=== PATIENT | male | born 1950 | race Caucasian/White ===

== ENCOUNTER 2019-06-16 11:15 | Outpatient (REF) | payer MEDICARE, OTHER, SELFPAY | END 2019-06-16 11:35 | LOC: LBN 11:15 | PROVIDERS: PCP Family Medicine; Visit Provider Family Medicine | DX: L02.31 Cutaneous abscess of buttock (principal) | CPT/HCPCS: 87070; 87205 ==

== ENCOUNTER 2019-06-23 15:40 | Outpatient (CLI) | payer MEDICARE, OTHER, SELFPAY ==
--- NOTE | 2019-06-23 12:15 | DI.RAD_ITS ---
EXAM: XR CHEST 2V PA LATERAL INDICATION: Fever and wheezing on exam, acute bronchitis, J20.9, r/o pneumonia. COMPARISON: CHEST WITH CONTRAST from 04/01/2015 CHEST 2 VIEWS PA,LAT from 07/03/2017 TECHNIQUE: 2D digital imaging was performed. FINDINGS: The cardiac and mediastinal contours have a normal appearance. Areas of scarring are in the right mi ddle lobe and lingula. No focal area of consolidation or effusion is seen. No peribronchial thicken ing is visible. IMPRESSION: Mild scarring. No acute abnormality. DATA REPOSITORY: RADIATION DOSE DELIVERED:
== END 2019-06-23 16:00 ==
PROVIDERS: PCP Family Medicine; Visit Provider Family Medicine
DX: R06.2 Wheezing (principal); R50.9 Fever, unspecified; J20.9 Acute bronchitis, unspecified; J98.4 Other disorders of lung
CPT/HCPCS: 71046

== ENCOUNTER 2020-03-29 07:00 | Day surgery (SDC) | payer MEDICARE, OTHER, SELFPAY ==
[2020-03-29 07:06] VITALS: BP 141/91; PULSE 89; RESP 17; TEMP 36.3; O2SAT 99
[2020-03-29] MEDS: Tropicam./Phenyleph. (1/2.5%) 5 ML BTL OS ×3 (07:20→07:33)
[2020-03-29] MEDS: Lidocaine 2% Jelly 6 ML SYR (08:27)
[2020-03-29] MEDS: Povidone-Iodine Ophth 30 ML BTL (08:27)
[2020-03-29] MEDS: Tetracaine 0.5% 4 ML BTL OS (08:34)
[2020-03-29] MEDS: Balanced Salt Soln.-PLUS 500 ML BAG (08:35)
[2020-03-29] MEDS: Trypan Blue 0.06% 0.5 ML SYR (08:36)
[2020-03-29] MEDS: Duovisc Viscoelastic System EACH 1 EACH (08:37)
[2020-03-29] MEDS: Lidocaine 1% Pres-Free 5 ML VIAL (08:38)
[2020-03-29] MEDS: Moxifloxacin-PF 1 MG/ML VIAL (08:40)
--- NOTE | 2020-03-29 09:09 | W.PM.DSUDISC ---
Discharge Plan Disposition Patient Disposition: HOME Condition: Good Discharge Details Attending Provider: Wong Elder Primary Care Provider: Bin Loja Home Meds and New Rx's Prescriptions: No Action albuterol sulfate [Ventolin HFA] 90 mcg/actuation HFA aerosol inhaler 1 puff IH Q6H PRN (Reason: shortness of breath or wheezing) Qty: 18 RF: 3 aspirin 81 MG tablet,delayed release (DR/EC) 81 mg PO DAILY Qty: 100 RF: 6 amlodipine-benazepril 10-20 mg capsule 1 cap PO DAILY Qty: 90 RF: 3 metoprolol succinate 50 mg tablet extended release 24 hr 50 mg PO DAILY Qty: 90 RF: 3 Discharge Instructions Stand Alone Forms: Post-op Topical Cataract, Alexis Garcia (DSU) Discharge Orders Discharge Orders: Discharge Order (Routine); Ordered 03/29/20 Ordered By: Wong Elder DS: Diagnosis Discharge Diagnosis (1) Exotropia, right eye: Status: Chronic (2) Posterior subcapsular age-related cataract, right eye: Status: Resolved (3) Nuclear sclerotic cataract of right eye: Status: Resolved (4) Cortical cataract of right eye: Status: Resolved
--- NOTE | 2020-03-29 09:09 | W.PM.OP ---
Date of service: 03/29/20 Time of Service: 09:10 Operative Note Operative Note DATE OF PROCEDURE: 03/29/20 PRE-OP DIAGNOSIS: Dense nuclear/cortical/posterior subcapsular cataract, right eye; Poor red reflex, right eye secondary to dense cataract Exotropia, right eye POST-OP DIAGNOSIS: same PROCEDURE: Cataract extraction using phacoemulsification with intraocular lens implantation, right eye, using capsular staining with Vision Blue SURGEON: Wong Elder ANESTHESIA: MAC (with local sub-tenon's anesthetic injection) PATHOLOGY: none sent COMPLICATIONS: None Patient was transported to: same day Patient's condition: stable Implants: Crispin [employer] Cris[employer] / [employer] Tecnis [id number] Indications: Progressive visual loss due to cataract, right eye Procedure Description: CATARACT SURGERY OPERATIVE REPORT PREOPERATIVE DIAGNOSIS: 1. Dense nuclear/cortical/posterior subcapsular cataract, right eye 2. Poor red reflex secondary to #1 3. Exotropia, right eye POSTOPERATIVE DIAGNOSIS: Same OPERATION: 1. Cataract extraction using phacoemulsification with posterior chamber intraocular lens implant, right eye. 2. Capsular staining with Vision Blue IOL: IOL Melting Furnace Skimmer/Model: Crispin & Crispin / LOGAN Tecnis [id number] IOL Power: + 22.50 diopters IOL Serial Number: [id number] Optic Diameter: 6.0mm Haptic/Overall Diameter: 13.0mm PHACO INFO: Chidi [employer] Vision System with OZil and Active Fluidics Cumulative Dispersed Energy (CDE): 25.65 seconds SURGEON: Wong Elder MD, DARRIUS ANESTHESIA: Monitored Anesthesia Care (MAC), with local sub-tenon's anesthetic infiltration COMPLICATIONS: None SPECIMENS: None INDICATIONS FOR PROCEDURE: The patient is a 70-year-old gentleman with history of diminished visual acuity in both eyes. He is noted to have dense bilateral nuclear/cortical/posterior subcapsular cataract. He has a history of right exotropia with very poor central visual acuity. The option of cataract surgery was offered to the patient and he wished to proceed. PROCEDURE: The correct surgical eye was identified and marked as the right eye and the pupil was dilated in the preoperative area using mydriatics and cycloplegics. The dilated pupil size was 5.5 mm. Oral sedation was administered in the form of an Imprimis MKO Melt (midazolam 3mg/ketamine 25mg/ondansetron 2mg). The patient was brought to the operating room where cardiopulmonary monitoring was instituted and surgical time-out was performed, confirming the correct operative eye and IOL power. Topical anesthesia was administered and ophthalmic povidone-iodine 5% was instilled into the conjunctival fornices. Lidocaine gel was applied to the cornea and the jigna-ocular area was prepped with Betadine 10% solution and draped in the usual sterile fashion for intraocular surgery, including an aperture drape. A Tegaderm transparent film dressing was cut in half and used to cover the lashes and lid margins. Care was taken to sequester the lashes and lid margins under the Tegaderm dressing. A lid speculum was placed between the lids of the operative eye and the Janet-Salty operating microscope was maneuvered into position. Betty scissors were then used to make a conjunctival buttonhole approximately 6mm posterior to the limbus in the inferonasal quadrant. Blunt dissection was carried out to expose bare sclera, and a blunt-tipped sub-tenon?s anesthesia cannula was introduced and passed posteriorly along the globe where non-preserved plain lidocaine was injected into posterior sub-Tenon?s space. A sideport knife was used to make a paracentesis port inferotemporally. Intraocular phenylephrine/lidocaine was injected into the anterior chamber. Air was injected into the anterior chamber, followed by Vision Blue, which was painted over the anterior capsule and then irrigated out with BSS. The anterior chamber was filled with Viscoat. A 2.4mm keratome knife was used to create a half-thickness groove at the limbus and then to construct a three-plane near-clear corneal tunnel extending 2.0mm into clear cornea superiortemporally. A flap was raised on the anterior capsule and capsulorhexis forceps were used to complete a continuous curvilinear capsulorhexis of 4.8 mm. Balanced salt solution was then used to perform cortical cleaving hydrodissection and nuclear hydrodelineation until the lens could be freely rotated within the capsular bag. The lens nucleus was then disassembled and removed within the capsular bag and iris plane using phacoemulsification. Residual cortical material was removed using the I/A handpiece. The posterior capsule was carefully polished to remove as much residual lens epithelial cells as safely possible. The capsular bag was then inflated and the anterior chamber deepened with viscoelastic. The lens implant described above was inserted into the capsular bag using the LOGAN [place] Injector. A Kuglen hook was used to dial the IOL into position. Residual viscoelastic was then removed first from posterior to the IOL, then from the anterior chamber using the I/A handpiece. The lens implant was noted to center nicely within the capsular bag. The incisions were stromally hydrated, and the anterior chamber was reformed using BSS. Then 0.5cc of moxifloxacin 1.0mg/ml were injected into the capsular bag and anterior chamber. The incisions were checked with a Weck spear and found to be secure. Several drops of ophthalmic povidone-iodine 5% were then applied to the eye followed by two drops of Imprimis combination prednisolone/moxifloxacin/nepafenac solution. The drapes were removed and a clear plastic protective eye shield was placed over the eye. The patient was then returned to Same Day Surgery in stable condition.
[2020-03-29 09:25] VITALS: BP 108/62; PULSE 82; RESP 19; TEMP 36.8; O2SAT 98
== END 2020-03-29 09:35 | disposition home or self-care (01) ==
PROVIDERS: PCP Family Medicine; Visit Provider Ophthalmology
PROC: (CPT 66982; principal; 2020-03-29 08:15)
DX: H25.11 Age-related nuclear cataract, right eye (principal); H25.041 Posterior subcapsular polar age-related cataract, right eye; H25.011 Cortical age-related cataract, right eye; H50.10 Unspecified exotropia; H57.09 Other anomalies of pupillary function
CPT/HCPCS: 66982; V2632

== ENCOUNTER 2020-04-12 09:38 | Day surgery (SDC) | payer MEDICARE, OTHER, SELFPAY ==
[2020-04-12] MEDS: Tropicam./Phenyleph. (1/2.5%) 5 ML BTL OS ×3 (10:02→10:14)
[2020-04-12 10:03] VITALS: BP 154/77; PULSE 79; RESP 18; TEMP 36.5; O2SAT 97
[2020-04-12] MEDS: Tetracaine 0.5% 4 ML BTL OS (11:02)
[2020-04-12] MEDS: Lidocaine 2% Jelly 6 ML SYR (11:03)
[2020-04-12] MEDS: Povidone-Iodine Ophth 30 ML BTL (11:03)
[2020-04-12] MEDS: Lidocaine 1% Pres-Free 5 ML VIAL (11:09)
[2020-04-12] MEDS: Balanced Salt Soln.-PLUS 500 ML BAG (11:11)
[2020-04-12] MEDS: Trypan Blue 0.06% 0.5 ML SYR (11:12)
--- NOTE | 2020-04-12 11:42 | PDOC.DSDIS_ITS ---
Discharge Plan Disposition Condition: Good Discharge Details Attending Provider: Wong Elder Primary Care Provider: Bin Loja Home Meds and New Rx's Prescriptions: No Action albuterol sulfate [Ventolin HFA] 90 mcg/actuation HFA aerosol inhaler 1 puff IH Q6H PRN (Reason: shortness of breath or wheezing) Qty: 18 RF: 3 aspirin 81 MG tablet,delayed release (DR/EC) 81 mg PO DAILY Qty: 100 RF: 6 amlodipine-benazepril 10-20 mg capsule 1 cap PO DAILY Qty: 90 RF: 3 metoprolol succinate 50 mg tablet extended release 24 hr 50 mg PO DAILY Qty: 90 RF: 3 Move Free Align Technology 750 mg-100 mg- 1.65 mg-108 mg Tablet PO RF: 0 Discharge Instructions Stand Alone Forms: Post-op Block Cataract, Post-op Topical Cataract, Press Ganey (DSU) DS: Diagnosis Discharge Diagnosis (1) Cortical cataract of left eye: Status: Resolved (2) Nuclear sclerotic cataract of left eye: Status: Resolved (3) Posterior subcapsular age-related cataract of left eye: Status: Resolved
--- NOTE | 2020-04-12 11:43 | ROE_ITS ---
Date of service: 04/12/20 Time of Service: 11:43 Operative Note Operative Note DATE OF PROCEDURE: 04/12/20 PRE-OP DIAGNOSIS: Nuclear/cortical/posterior subcapsular cataract, left eye; Poor red reflex, left eye secondary to cataract POST-OP DIAGNOSIS: same PROCEDURE: Cataract extraction using phacoemulsification with intraocular lens implant, left eye, using capsular staining with Vision Blue SURGEON: Wong Elder ANESTHESIA: MAC (with local sub-tenon's anesthetic injection) COMPLICATIONS: None Patient was transported to: same day Patient's condition: stable Implants: Crispin and Crispin / [employer] Tecnis [id number] Indications: Progressive decreased vision due to cataract, left eye, with poor red reflex Procedure Description: CATARACT SURGERY OPERATIVE REPORT PREOPERATIVE DIAGNOSIS: 1. Nuclear/cortical/posterior subcapsular cataract, left eye 2. Poor red reflex secondary to #1 POSTOPERATIVE DIAGNOSIS: Same OPERATION: 1. Cataract extraction using phacoemulsification with posterior chamber intraocular lens implant, left eye. 2. Capsular staining with Vision Blue IOL: IOL Material Damage Adjuster/Model: Crispin & Crispin / LOGAN Tecnis [id number] IOL Power: + 23.0 diopters IOL Serial Number: [id number] Optic Diameter: 6.0 mm Haptic/Overall Diameter: 13.0 mm PHACO INFO: Chidi [employer] Vision System with OZil and Active Fluidics Cumulative Dispersed Energy (CDE): 10.91 seconds SURGEON: Wong Elder MD, DARRIUS ANESTHESIA: Monitored [facility] Care (MAC), with local sub-tenon's anesthetic infiltration COMPLICATIONS: None SPECIMENS: None INDICATIONS FOR PROCEDURE: The patient is a 70-year-old gentleman with history of diminished visual acuity in both eyes secondary to the development of bilateral nuclear cortical and posterior subcapsular cataract. He has already undergone cataract surgery in his right eye and is doing well postoperatively. He now presents for cataract surgery in the left eye. PROCEDURE: The correct surgical eye was identified and marked as the left eye and the pupil was dilated in the preoperative area using mydriatics and cycloplegics. The dilated pupil size was 6.5 mm. Oral sedation was administered in the form of an Imprimis MKO Melt (midazolam 3mg/ketamine 25mg/ondansetron 2mg). The patient was brought to the operating room where cardiopulmonary monitoring was instituted and surgical time-out was performed, confirming the correct operative eye and IOL power. Topical anesthesia was administered and ophthalmic povidone-iodine 5% was instilled into the conjunctival fornices. Lidocaine gel was applied to the cornea and the jigna-ocular area was prepped with Betadine 10% solution and d raped in the usual sterile fashion for intraocular surgery, including an aperture drape. A Tegaderm transparent film dressing was cut in half and used to cover the lashes and lid margins. Care was taken to sequester the lashes and lid margins under the Tegaderm dressing. A lid speculum was placed between the lids of the operative eye and the Janet-Salty operating microscope was maneuvered into position. Betty scissors were then used to make a conjunctival buttonhole approximately 6mm posterior to the limbus in the inferonasal quadrant. Blunt dissection was carried out to expose bare sclera, and a blunt-tipped sub-tenon?s anesthesia cannula was introduced and passed posteriorly along the globe where non- preserved plain lidocaine was injected into posterior sub-Tenon?s space. A sidep ort knife was used to make a paracentesis port superiorly/superiortemporally. Intraocular phenylephrine/lidocaine was injected int the anterior chamber.. Air was then injected into the anterior chamber, followed by Vision Blue, which was painted over the anterior capsule and then irrigated out using BSS. The anterior chamber was filled with Healon endocoat viscoelastic. A 2.4mm keratome knife was used to create a half-thickness groove at the limbus and then to construct a three-plane near-clear corneal tunnel extending 2.0mm into clear cornea at the 3:00 position. A flap was raised on the anterior capsule and capsulorhexis forceps were used to complete a continuous curvilinear capsulorhexis of 5.0 mm. Balanced salt solution was then used to perform cortical cleaving hydrodissection and nuclear hydrodelineation until the lens could be freely rotated within the capsular bag. The lens nucleus was then disassembled and removed within the capsular bag and iris plane using phacoemulsification. Residual cortical material was removed using the 45-degree angled silicone I/A tip with 0.3mm port. The posterior capsule was carefully polished to remove as much residual lens epithelial cells as safely possible. The capsular bag was then inflated and the anterior chamber deepened with viscoelastic. The lens implant described above was inserted into the capsular bag using the LOGAN Platin um Injector. A Kuglen hook was used to dial the IOL into position. Residual viscoelastic was then removed first from posterior to the IOL, then from the anterior chamber using the I/A handpiece. The lens implant was noted to center nicely within the capsular bag. The incisions were stromally hydrated, and the anterior chamber was reformed using BSS. Then 0.5cc of moxifloxacin 1.0mg/ml were injected into the capsular bag and anterior chamber. The incisions were checked with a Weck spear and found to be secure. Several drops of ophthalmic povidone-iodine 5% were then applied to the eye followed by two drops of Imprimis combination prednisolone/moxifloxacin/nepafenac solution. The drapes were removed and a clear plastic protective eye shield was placed over the eye. The patient was then returned to Same Day Surgery in stable condition.
[2020-04-12 12:15] VITALS: BP 126/73; PULSE 71; RESP 18; TEMP 36.4; O2SAT 98
== END 2020-04-12 12:23 | disposition home or self-care (01) ==
PROVIDERS: PCP Family Medicine; Visit Provider Ophthalmology
PROC: (CPT 66982; principal; 2020-04-12 11:15)
DX: H25.012 Cortical age-related cataract, left eye (principal); H25.12 Age-related nuclear cataract, left eye; H25.042 Posterior subcapsular polar age-related cataract, left eye; H35.89 Other specified retinal disorders; Z98.41 Cataract extraction status, right eye; Z96.1 Presence of intraocular lens; I10 Essential (primary) hypertension; F17.210 Nicotine dependence, cigarettes, uncomplicated; F10.20 Alcohol dependence, uncomplicated; I48.0 Paroxysmal atrial fibrillation
CPT/HCPCS: 66982; V2632

== ENCOUNTER 2020-11-22 10:41 | Outpatient (CLI) | payer MEDICARE, OTHER, SELFPAY ==
--- NOTE | 2020-11-22 09:00 | DI.RAD_ITS ---
Exam(s) XR RIBS RT W PA LAT CHEST EXAM: XR RIBS RT W PA LAT CHEST CLINICAL HISTORY: right upper flank/back pain s/p fall. ? rib fx, W19.XXXA, M25.551 TECHNIQUE: 2D digital imaging was performed. COMPARISON: CR XR CHEST 2V PA LATERAL from 06/23/2019 FINDINGS: There is a mildly displaced acute appearing fracture of the right 4th rib. No other right rib fractu res evident. No obvious rib lesions. No lung contusion or pneumothorax. There is no pleural effusion evident. Heart size is normal and there is no significant mediastinal widening. IMPRESSION: 1. There is an acute appearing fracture of the right 4th rib. 2. No ipsilateral lung nor pleural abnormality evident. No pneumothorax. DATA REPOSITORY: RADIATION DOSE DELIVERED:
== END 2020-11-22 11:01 ==
PROVIDERS: PCP Family Medicine; Visit Provider Nurse Practitioner
DX: S22.31XA Fracture of one rib, right side, initial encounter for closed fracture; M25.551 Pain in right hip; W19.XXXA Unspecified fall, initial encounter
CPT/HCPCS: 71046; 71100

== ENCOUNTER 2021-01-24 07:10 | Outpatient (RCR) | payer MEDICARE, OTHER, SELFPAY ==
--- NOTE | 2021-01-24 11:30 | HOLTER_ITS ---
APPROVED REPORT Conclusion This is a 48-hour Holter monitor, reportedly ordered for atrial fibrillation and syncope Predominant rhythm was sinus. Average heart rate was 63, maximum 86, minimum 52 There were rare ventricular ectopic beats There were very rare atrial premature beats. There were 2 brief self-limited atrial runs, the longest of which was 5 beats in duration There was no atrial fibrillation. There was no high-grade AV block There was one 2.9-second pause No patient symptoms were reported
== END 2021-02-20 23:59 | disposition home or self-care (01) ==
LOC: RT 07:10
PROVIDERS: PCP Family Medicine; Visit Provider Family Medicine
DX: R55 Syncope and collapse (principal); I48.91 Unspecified atrial fibrillation; I49.1 Atrial premature depolarization; I49.5 Sick sinus syndrome
CPT/HCPCS: 93227; 93228; 93225; 93226

== ENCOUNTER 2021-10-20 14:50 | Outpatient (REF) | payer MEDICARE, OTHER, SELFPAY ==
[2021-10-22 10:43] LABS: COVID-19 RT-PCR UVMMC Result Negative (Negative)
== END 2021-10-20 14:51 | disposition home or self-care (01) ==
LOC: NCHCN 14:50
PROVIDERS: PCP Family Medicine; Visit Provider Physician Assistant Medical
DX: R05.8 Other specified cough (principal); Z20.822 Contact with and (suspected) exposure to COVID-19
CPT/HCPCS: U0003; 87070

== ENCOUNTER 2022-08-22 10:11 | Outpatient (CLI) | payer MEDICARE, OTHER, SELFPAY ==
--- NOTE | 2022-08-22 10:00 | RT.EKG_ITS ---
APPROVED REPORT Exam: Resting ECG Reason for Exam: Follow up to Annual - concern for Afib Patient Location: O HR:93 bpm ECG Measurements Heart Rate 93 AXIS [place] [id number] P [id number] QRSd 93 QRS 59 QT 358 T 81 QTc 446 Conclusion Atrial flutter...A-rate 254 Low voltage, precordial leads...precordial leads <1.0mV Consider anterior infarct...Q >30mS in V2-V5 Moderate artifact
== END 2022-08-22 10:12 | disposition home or self-care (01) ==
LOC: DI.KIM 10:13
PROVIDERS: PCP Family Medicine; Visit Provider Family Medicine
DX: I48.91 Unspecified atrial fibrillation (principal); R00.0 Tachycardia, unspecified
CPT/HCPCS: 93010

== ENCOUNTER 2022-09-01 10:20 | Outpatient (CLI) | payer MEDICARE, OTHER, SELFPAY | END 2022-09-01 10:21 | disposition home or self-care (01) | PROVIDERS: PCP Family Medicine; Visit Provider Family Medicine | DX: I48.91 Unspecified atrial fibrillation (principal); I48.92 Unspecified atrial flutter | CPT/HCPCS: 93270 ==

== ENCOUNTER 2022-10-09 10:16 | Outpatient (CLI) | payer MEDICARE, OTHER, SELFPAY | END 2022-10-09 10:17 | disposition home or self-care (01) | LOC: CARDOPNVT 10:16 | PROVIDERS: PCP Family Medicine; Visit Provider Internal Medicine Cardiovascular Disease | DX: I48.91 Unspecified atrial fibrillation (principal); I48.92 Unspecified atrial flutter | CPT/HCPCS: 93272 ==

== ENCOUNTER 2022-11-10 10:03 | Inpatient (IN) | payer MEDICARE, SELFPAY ==
[2022-11-10] VITALS (225 sets, daily range): BP systolic 59–113; BP diastolic 47–70; PULSE 76–159; RESP 1–40; TEMP 36.8–37.8; O2SAT 72–100
--- NOTE | 2022-11-10 10:15 | DI.RAD_ITS ---
Exam(s) XR PORTABLE CHEST AP EXAM: XR PORTABLE CHEST AP CLINICAL HISTORY: cough, hypoxia TECHNIQUE: 2D digital imaging was performed. COMPARISON: CT CHEST WITH CONTRAST from 04/01/2015 CR XR RIBS RT W PA LAT CHEST from 11/22/2020 FINDINGS: LUNGS: Left lower lobe pneumonia. Right lung is clear peer no pleural abnormality seen. HEART: Normal size. AORTA: Normal diameter. Calcified. BONES: Unremarkable for age. Soft tissues: Unremarkable. IMPRESSION: Left lower lobe pneumonia. DATA REPOSITORY: RADIATION DOSE DELIVERED:
[2022-11-10] MEDS: Lactated Ringers 500 ML 1000 ML IV (10:25)
[2022-11-10] MEDS: Dextrose 25%-Water 10 ML SYR IVP ×2 (10:25→10:47)
--- NOTE | 2022-11-10 10:30 | W.ED.GENAD ---
Discharge Plan Disposition Patient Disposition: Admit to [facility] Condition: Critical Discharge Details Clinical Impression: Sepsis, Left lower lobe pneumonia, Acute hyponatremia, Elevated troponin, Acidosis, Acute hyperkalemia, Hypocalcemia, Hypoxia Admit Date/Time: 11/10/22 12:40 Admit Provider: Susanna Barrios Attending Provider: Susanna Barrios Primary Care Provider: Bin Loja ED Provider: Matthew Brown Discharge Data Discharge Date/Time-TO BE ENTERED AT DEPARTURE: 11/10/22 15:23 Medical Decision Making 1040 -- Patient was seen immediately on arrival. 72-year-old male arrives by private vehicle in critical condition. Patient here with generalized weakness, difficulty ambulating, slurred speech and recent cough. Patient hypoxic saturating in the 70s on room air. Patient is afebrile. Hypotensive. Not tachycardic but is on beta-dario. Nonrebreather was applied and oxygen saturation improved from 72 to 100%. Patient has rales on exam and concerned about pneumonia. Fingerstick checked and 58. I will D25. Lactate elevated. Blood cx pending. Will initiate IVF bolus. Chest x-ray was reviewed and interpreted by me: Left lower lobe pneumonia. Confirmed with radiologist. Plan to initiate antibiotic coverage. --Glucose rechecked and improved. -- I spoke with Dr. Haq, on-call critical care, she has evaluated the patient at bedside. I spoke with the hospitalist, Dr. Barrios, discussed ED presentation course, she will admit the patient. She recommends hydrocortisone be given and request CT of the chest abdomen pelvis. 1352 --Central line was placed for access and given instability. -- Patient reassessed multiple times and is improving. -- Spoke with Dr. Barrios, fire control officer hospitalist, she had spoke with Dr. Haq, I discussed ED presentaiton and course and she will accept the patient for admission to the ICU. CT chest, abd/pelv requested. Care transitioned at time of admission. Lab Data Lab results reviewed: Yes I reviewed the patient's lab results. Labs: 11/10/22 13:20 Nose MRSA Screen - Pending 11/10/22 10:18 Blood Blood Culture - Pending 11/10/22 10:18 Blood Blood Culture - Pending Laboratory Tests Range/Units 11/10/22 11/10/22 11/10/22 10:18 10:21 10:21 WBC (4.4-10.8) 10^3/uL 5.83 RBC (4.36-5.78) 10^6/uL 4.56 Hgb (13.5-17.5) g/dL 11.9 L Hct (40.0-50.0) % 36.4 L MCV (80-95) fL 80 MCH (27.0-33.0) pg 26.1 L MCHC (32.0-36.0) % 32.7 RDW (11.8-14.1) % 16.8 H Plt Count (130-400) 10^3/uL 132 MPV (8.0-11.0) fL Immature Gran % See Differential Neutrophils % 26.0 Band Neutrophils % 60 Lymphocytes % 4.0 Monocytes % 1.0 Eosinophils % 0.0 Basophils % 0.0 Metamyelocytes % 9 Nucleated RBC % (0.0-0.3) % 0.0 Absolute Neutrophils (1.2-6.7) 10^3/uL 5.01 Absolute Lymphocytes (1.2-3.4) 10^3/uL 0.23 L Absolute Monocytes (0.1-0.8) 10^3/uL 0.06 L Absolute Eosinophils (0.0-0.7) 10^3/uL 0.00 Absolute Basophils (0.0-0.2) 10^3/uL 0.00 RBC Morphology See Below Anisocytosis 2+ Microcytosis 1+ VBG pH (7.31-7.41) VBG pCO2 (41-51) mmHg VBG pO2 mmHg VBG HCO3 (23-28) mmol/L VBG Total CO2 (24-29) mmol/L VBG O2 Saturation % VBG Base Excess (-2-3) mmol/L VBG Lactate (0.9-1.7) MMOL/l Sodium Cancelled Potassium Cancelled Chloride Cancelled Carbon Dioxide Cancelled Anion Gap Cancelled BUN Cancelled Creatinine Cancelled Est GFR (CKD-EPI 2020) Cancelled Glucose Cancelled Calcium Cancelled Total Bilirubin Cancelled AST Cancelled ALT Cancelled Alkaline Phosphatase Cancelled Troponin I (<or=60) ng/L 1972 H* C-Reactive Protein (0.0-0.3) mg/dL NT-Pro-B Natriuret Pep (<300) pg/mL Total Protein Cancelled Albumin Cancelled Procalcitonin ng/mL TSH (0.36-3.74) uIU/mL Free T4 (0.76-1.46) ng/dL Urine Color (Yellow) Urine Clarity (Clear) Urine pH (5-8) Ur Specific [place] (1.005-1.025) Urine Protein (Negative) mg/dL Urine Ketones (Negative) mg/dL Urine Blood (Negative) Urine Nitrite (Negative) Urine Bilirubin (Negative) Urine Urobilinogen (Up to 0.2) mg/dL Ur Leukocyte Esterase (Negative) Urine RBC (0-2) HPF Urine WBC (0-5) HPF Ur Epithelial Cells (Negative) HPF Urine Crystals (Negative) HPF Urine Bacteria (Negative) HPF Urine Casts (Negative) LPF Urine Mucus (Negative) Urine Other (Negative) Ur Culture Indicated? Urine Glucose (Negative) mg/dL COVID-19 Source Add-On Test Request Range/Units 11/10/22 11/10/22 11/10/22 10:21 11:20 11:20 WBC (4.4-10.8) 10^3/uL RBC (4.36-5.78) 10^6/uL Hgb (13.5-17.5) g/dL Hct (40.0-50.0) % MCV (80-95) fL MCH (27.0-33.0) pg MCHC (32.0-36.0) % RDW (11.8-14.1) % Plt Count (130-400) 10^3/uL MPV (8.0-11.0) fL Immature Gran % Neutrophils % Band Neutrophils % Lymphocytes % Monocytes % Eosinophils % Basophils % Metamyelocytes % Nucleated RBC % (0.0-0.3) % Absolute Neutrophils (1.2-6.7) 10^3/uL Absolute Lymphocytes (1.2-3.4) 10^3/uL Absolute Monocytes (0.1-0.8) 10^3/uL Absolute Eosinophils (0.0-0.7) 10^3/uL Absolute Basophils (0.0-0.2) 10^3/uL RBC Morphology Anisocytosis Microcytosis VBG pH (7.31-7.41) 7.26 L VBG pCO2 (41-51) mmHg 43 VBG pO2 mmHg 33 VBG HCO3 (23-28) mmol/L 19 L VBG Total CO2 (24-29) mmol/L 19 L VBG O2 Saturation % 51 VBG Base Excess (-2-3) mmol/L -8 L VBG Lactate (0.9-1.7) MMOL/l 11.0 H* Sodium 117 L* Potassium 5.5 H Chloride 86 L Carbon Dioxide 19.6 L Anion Gap 11.4 H BUN 7 Creatinine 1.4 H Est GFR (CKD-EPI 2020) 53.74 Glucose 192 H Calcium 7.6 L Total Bilirubin 1.1 H AST 109 H ALT 28 Alkaline Phosphatase 34 L Troponin I (<or=60) ng/L C-Reactive Protein (0.0-0.3) mg/dL NT-Pro-B Natriuret Pep (<300) pg/mL Total Protein 4.9 L Albumin 2.0 L Procalcitonin ng/mL TSH (0.36-3.74) uIU/mL Free T4 (0.76-1.46) ng/dL Urine Color (Yellow) Urine Clarity (Clear) Urine pH (5-8) Ur Specific [place] (1.005-1.025) Urine Protein (Negative) mg/dL Urine Ketones (Negative) mg/dL Urine Blood (Negative) Urine Nitrite (Negative) Urine Bilirubin (Negative) Urine Urobilinogen (Up to 0.2) mg/dL Ur Leukocyte Esterase (Negative) Urine RBC (0-2) HPF Urine WBC (0-5) HPF Ur Epithelial Cells (Negative) HPF Urine Crystals (Negative) HPF Urine Bacteria (Negative) HPF Urine Casts (Negative) LPF Urine Mucus (Negative) Urine Other (Negative) Ur Culture Indicated? Urine Glucose (Negative) mg/dL COVID-19 Source Add-On Test Request Range/Units 11/10/22 11/10/22 11/10/22 11:20 11:20 12:02 WBC (4.4-10.8) 10^3/uL RBC (4.36-5.78) 10^6/uL Hgb (13.5-17.5) g/dL Hct (40.0-50.0) % MCV (80-95) fL MCH (27.0-33.0) pg MCHC (32.0-36.0) % RDW (11.8-14.1) % Plt Count (130-400) 10^3/uL MPV (8.0-11.0) fL Immature Gran % Neutrophils % Band Neutrophils % Lymphocytes % Monocytes % Eosinophils % Basophils % Metamyelocytes % Nucleated RBC % (0.0-0.3) % Absolute Neutrophils (1.2-6.7) 10^3/uL Absolute Lymphocytes (1.2-3.4) 10^3/uL Absolute Monocytes (0.1-0.8) 10^3/uL Absolute Eosinophils (0.0-0.7) 10^3/uL Absolute Basophils (0.0-0.2) 10^3/uL RBC Morphology Anisocytosis Microcytosis VBG pH (7.31-7.41) VBG pCO2 (41-51) mmHg VBG pO2 mmHg VBG HCO3 (23-28) mmol/L VBG Total CO2 (24-29) mmol/L VBG O2 Saturation % VBG Base Excess (-2-3) mmol/L VBG Lactate (0.9-1.7) MMOL/l Sodium Potassium Chloride Carbon Dioxide Anion Gap BUN Creatinine Est GFR (CKD-EPI 2020) Glucose Calcium Total Bilirubin AST ALT Alkaline Phosphatase Troponin I (<or=60) ng/L C-Reactive Protein (0.0-0.3) mg/dL 13.63 H NT-Pro-B Natriuret Pep (<300) pg/mL > 79468 H Total Protein Albumin Procalcitonin ng/mL 11.1 TSH (0.36-3.74) uIU/mL 1.71 Free T4 (0.76-1.46) ng/dL 0.96 Urine Color (Yellow) Yellow Urine Clarity (Clear) Clear Urine pH (5-8) 5.0 Ur Specific [place] (1.005-1.025) >= 1.030 H Urine Protein (Negative) mg/dL 30 H Urine Ketones (Negative) mg/dL Negative Urine Blood (Negative) Large H Urine Nitrite (Negative) Negative Urine Bilirubin (Negative) Small H Urine Urobilinogen (Up to 0.2) mg/dL 1.0 H Ur Leukocyte Esterase (Negative) Negative Urine RBC (0-2) HPF 5-10 H Urine WBC (0-5) HPF 0-2 Ur Epithelial Cells (Negative) HPF Negative Urine Crystals (Negative) HPF Negative Urine Bacteria (Negative) HPF Negative Urine Casts (Negative) LPF 20-50 Hyaline Urine Mucus (Negative) Negative Urine Other (Negative) Mod Transitional Ur Culture Indicated? No Urine Glucose (Negative) mg/dL 250 H COVID-19 Source Add-On Test Request Range/Units 11/10/22 11/10/22 11/10/22 12:31 13:15 13:40 WBC (4.4-10.8) 10^3/uL RBC (4.36-5.78) 10^6/uL Hgb (13.5-17.5) g/dL Hct (40.0-50.0) % MCV (80-95) fL MCH (27.0-33.0) pg MCHC (32.0-36.0) % RDW (11.8-14.1) % Plt Count (130-400) 10^3/uL MPV (8.0-11.0) fL Immature Gran % Neutrophils % Band Neutrophils % Lymphocytes % Monocytes % Eosinophils % Basophils % Metamyelocytes % Nucleated RBC % (0.0-0.3) % Absolute Neutrophils (1.2-6.7) 10^3/uL Absolute Lymphocytes (1.2-3.4) 10^3/uL Absolute Monocytes (0.1-0.8) 10^3/uL Absolute Eosinophils (0.0-0.7) 10^3/uL Absolute Basophils (0.0-0.2) 10^3/uL RBC Morphology Anisocytosis Microcytosis VBG pH (7.31-7.41) VBG pCO2 (41-51) mmHg VBG pO2 mmHg VBG HCO3 (23-28) mmol/L VBG Total CO2 (24-29) mmol/L VBG O2 Saturation % VBG Base Excess (-2-3) mmol/L VBG Lactate (0.9-1.7) MMOL/l 5.7 H* Sodium Potassium Chloride Carbon Dioxide Anion Gap BUN Creatinine Est GFR (CKD-EPI 2020) Glucose Calcium Total Bilirubin AST ALT Alkaline Phosphatase Troponin I (<or=60) ng/L C-Reactive Protein (0.0-0.3) mg/dL NT-Pro-B Natriuret Pep (<300) pg/mL Total Protein Albumin Procalcitonin ng/mL TSH (0.36-3.74) uIU/mL Free T4 (0.76-1.46) ng/dL Urine Color (Yellow) Urine Clarity (Clear) Urine pH (5-8) Ur Specific [place] (1.005-1.025) Urine Protein (Negative) mg/dL Urine Ketones (Negative) mg/dL Urine Blood (Negative) Urine Nitrite (Negative) Urine Bilirubin (Negative) Urine Urobilinogen (Up to 0.2) mg/dL Ur Leukocyte Esterase (Negative) Urine RBC (0-2) HPF Urine WBC (0-5) HPF Ur Epithelial Cells (Negative) HPF Urine Crystals (Negative) HPF Urine Bacteria (Negative) HPF Urine Casts (Negative) LPF Urine Mucus (Negative) Urine Other (Negative) Ur Culture Indicated? Urine Glucose (Negative) mg/dL COVID-19 Source Nasal/Nares Add-On Test Request DONE Range/Units 11/10/22 11/10/22 13:40 18:30 WBC (4.4-10.8) 10^3/uL RBC (4.36-5.78) 10^6/uL Hgb (13.5-17.5) g/dL Hct (40.0-50.0) % MCV (80-95) fL MCH (27.0-33.0) pg MCHC (32.0-36.0) % RDW (11.8-14.1) % Plt Count (130-400) 10^3/uL MPV (8.0-11.0) fL Immature Gran % Neutrophils % Band Neutrophils % Lymphocytes % Monocytes % Eosinophils % Basophils % Metamyelocytes % Nucleated RBC % (0.0-0.3) % Absolute Neutrophils (1.2-6.7) 10^3/uL Absolute Lymphocytes (1.2-3.4) 10^3/uL Absolute Monocytes (0.1-0.8) 10^3/uL Absolute Eosinophils (0.0-0.7) 10^3/uL Absolute Basophils (0.0-0.2) 10^3/uL RBC Morphology Anisocytosis Microcytosis VBG pH (7.31-7.41) 7.19 L* VBG pCO2 (41-51) mmHg 60 H VBG pO2 mmHg 36 VBG HCO3 (23-28) mmol/L 23 VBG Total CO2 (24-29) mmol/L 23 L VBG O2 Saturation % 51 VBG Base Excess (-2-3) mmol/L -5 L VBG Lactate (0.9-1.7) MMOL/l Cancelled Sodium Potassium Chloride Carbon Dioxide Anion Gap BUN Creatinine Est GFR (CKD-EPI 2020) Glucose Calcium Total Bilirubin AST ALT Alkaline Phosphatase Troponin I (<or=60) ng/L C-Reactive Protein (0.0-0.3) mg/dL NT-Pro-B Natriuret Pep (<300) pg/mL Total Protein Albumin Procalcitonin ng/mL TSH (0.36-3.74) uIU/mL Free T4 (0.76-1.46) ng/dL Urine Color (Yellow) Urine Clarity (Clear) Urine pH (5-8) Ur Specific [place] (1.005-1.025) Urine Protein (Negative) mg/dL Urine Ketones (Negative) mg/dL Urine Blood (Negative) Urine Nitrite (Negative) Urine Bilirubin (Negative) Urine Urobilinogen (Up to 0.2) mg/dL Ur Leukocyte Esterase (Negative) Urine RBC (0-2) HPF Urine WBC (0-5) HPF Ur Epithelial Cells (Negative) HPF Urine Crystals (Negative) HPF Urine Bacteria (Negative) HPF Urine Casts (Negative) LPF Urine Mucus (Negative) Urine Other (Negative) Ur Culture Indicated? Urine Glucose (Negative) mg/dL COVID-19 Source Add-On Test Request HPI General Mode of arrival: wheelchair. Date/Time Provider Initiated Documentation: 11/10/22 10:11. Limitations to Documentation: altered mental status. Information obtained by: patient and family (). HPI Narrative: 72-year-old male with history atrial fibrillation hypertension, hyperlipidemia hypochromic microcytic anemia with iron overload, here with generalized weakness and slurred speech. notes he has had progressive weakness over the past couple days. He has had associated cough over the past couple days. notes that today he was so weak that he could not ambulate without her significant assistance. She notes today he had slurred speech. Patient denies focal weakness. He has no headache. No recent fever. History and review of systems limited secondary to acuity of condition and slight altered mental status. Related Data Home Medications Medication Instructions Recorded Confirmed aspirin 81 mg tablet,delayed 81 mg PO DAILY #100 tabs 02/20/14 11/10/22 release albuterol sulfate 90 mcg/actuation 1 puff inhalation Q6H PRN 12/08/21 11/10/22 aerosol inhaler (Ventolin HFA) shortness of breath or wheezing #18 grams amlodipine 10 mg-benazepril 20 mg 1 cap PO DAILY #90 tab-caps 12/08/21 11/10/22 capsule metoprolol succinate 50 mg 50 mg PO DAILY #90 tabs 12/08/21 11/10/22 tablet,extended release 24 hr Previous Rx's Medication Instructions Recorded albuterol sulfate 90 mcg/actuation 1 puff inhalation Q6H PRN 12/08/21 aerosol inhaler (Ventolin HFA) shortness of breath or wheezing #18 grams amlodipine 10 mg-benazepril 20 mg 1 cap PO DAILY #90 tab-caps 12/08/21 capsule metoprolol succinate 50 mg 50 mg PO DAILY #90 tabs 12/08/21 tablet,extended release 24 hr Allergies Allergy/AdvReac Type Severity Reaction Status Date / Time No Known Allergies Allergy Verified 08/14/22 11:15 General Stated Complaint: AMS/LOC YAHIR: 2 Review of Systems Constitutional Constitutional: Denies fever(s) Cardiovascular Cardiovascular: Denies chest pain Respiratory Respiratory: Reports as per HPI Gastrointestinal Gastrointestinal: Denies abdominal pain Neurologic Neurologic: Reports as per HPI [facility] All Active Problems (Updated 11/11/22 @ 00:08 by NICHOLAS SZYMANSKI) Peripheral arterial disease (Chronic) Toxic metabolic encephalopathy (Acute) Multifocal pneumonia (Acute) Acute on chronic respiratory failure with hypoxia and hypercapnia (Acute) Respiratory acidosis (Acute) Sepsis (Acute) Left lower lobe pneumonia (Acute) Acute hyponatremia (Acute) Elevated troponin (Acute) Acidosis (Acute) Hypocalcemia (Acute) Hypoxia (Acute) Altered mental status (Acute) Elevated troponin (Acute) Respiratory failure with hypoxia (Acute) Elevated LFTs (Acute) Hypoglycemia (Acute) Acute renal failure (Acute) Lactic acidosis (Acute) Hyperkalemia (Acute) Acute hyponatremia (Acute) Septic shock (Acute) Pneumonia (Acute) Sensorineural hearing loss (SNHL) of both ears (Acute) Impacted cerumen of left ear (Acute) Erectile dysfunction (Acute) BPH loc w urin obs/LUTS (Acute) Back pain (Acute) Right hip pain (Acute) Fall (Acute) Atrial fibrillation (Acute 02/17/14) Exotropia, right eye (Chronic) Tobacco use disorder, moderate, dependence (Chronic 04/23/1966) 1.5 PPD, WANTS TO CONTINUE Thalassemia minor (Chronic 10/30/08) 2008 MCV 75, NORMAL IRON STUDIES Peripheral vascular disease with claudication (Chronic 06/20/00) VASC CALCIFICATIONS ON BACK X-RAY 05/2000; R ING BRUIT, PULSES intact, AB pressures: R 140/160, L 110/140 04/24/13 A:B pressures R 1.21; L 0.87 Paroxysmal atrial fibrillation (Chronic 02/17/14) paroxysmal, ECHO EF 60%; nl RV, no valve dis; CHADS-VASc score 2, see 03/16/15 ov re anticoagulation Other hyperlipidemia (Chronic 04/23/00) GOAL LDL<70 DUE TO PVD, SMOKING Hyposmolality (Chronic 06/20/11) LOW NA, 2014 persists off HCTZ: ? EtOH; ?SIADH lung dis Hypochromic microcytic anemia with iron overload (Chronic 12/14/16) C282Y: Not detected; H63D: Not detected.; Ferritin >2000; Fe/TIBC 237/326; Weekly phlebotomy begun 01/10/17 Hepatic steatosis (Chronic 02/29/16) 02/29/16 abdominal Ultrasound diagnosis Hyperlipidemia (Chronic 04/23/00) GOAL LDL<70 DUE TO PVD, SMOKING Essential hypertension (Chronic) Atrial fibrillation, chronic (Chronic 02/17/14) paroxysmal, ECHO EF 60%; nl RV, no valve dis; CHADS-VASc score 2, apixaban rec but hold due to EtOH use Alcohol use disorder (Chronic 04/23/10) 5 BEERS/NIGHT, NO INTOXICATION; ELEVATED GGT >300, ALT/AST NL Abnormal liver enzymes (Chronic 12/14/16) Abnormal chest xray (Chronic 02/20/14) nodule ? R mid lung laterally; confirmed on CT, smooth, rec f/u CT 3 mos NO CHANGE, ?rpt 6-9 mos Alcohol dependence (Chronic 04/23/10) 5 BEERS/NIGHT, NO INTOXICATION; ELEVATED GGT >300, ALT/AST NL Medical History Boil of buttock Surgical History History of colonoscopy History of hernia repair History of surgical amputation of finger of right hand History of tonsillectomy Hx of cataract extraction Hx of tooth extraction pt. reports no teeth Family History Mother , [place] at age 87. CAD (coronary artery disease) Myocardial infarction Lung cancer Father , [place] at age 73. Diabetes MS (multiple sclerosis) Brother No problems noted. Brother No problems noted. Brother No problems noted. Social History Smoking/Tobacco Use Status: Current every day Tobacco Type: cigarettes Smoking packs per day: 1.5 Smoking cigarettes per day: 30.0 Years smoked: 50 Smoking pack-years: 75.00 Quit status: not considering quitting Smoking risk assessment performed?: Yes Alcohol Intake: current Alcohol Intake frequency: 3 or more drinks per day Alcohol type: beer Details: pt drinks 8-10 beers daily Drug use: Never Substance use type: does not use Details: 8-12 beers a day Adopted: No Caregiver/Support person: No Foster care: No Household members: spouse Housing: house Number of Children: 0 Communication Needs: None Do you need help understanding health information?: Often current occupation: retired from factory work Pets and animals: Yes Pets and animals: cat(s) and dog(s) What is your relationship status?: How often do you talk on the phone with friends or family?: once per week How often do you get together with friends or relatives?: once per week Panel score (0-1 are the most socially isolated patients): 1 What type of physical activity do you participate in: none Seatbelt use: always Drive intox or ride w/intox bellman driver: No ( does driving for most part) Working smoke detector in home: Yes Fire extinguisher in home: Yes Carbon monox detector in home: Yes Firearms in home: No Do you feel safe at home: Yes Do you feel safe in your relationship?: Yes Exam Const General: cooperative Orientation: alert and awake HENMT Mouth: moist mucous membranes Eyes Conjunctivae: normal conjunctivae Sclera: normal sclerae Neck Neck: trachea midline and supple Resp Effort & Inspection: labored and tachypneic Auscultation: rales and rhonchi Cardio Rate: regular rate and not tachycardic Rhythm: regular rhythm GI Palpation: soft, not firm, no guarding, no masses, not rigid and nontender Skin General skin exam: no rashes or lesions noted Neuro General: patient alert and patient awake Speech: abnormal speech slurred Motor: other (GENERALIZED WEAKNESS, 4/5 ALL EXT) Extrem General: no calf tenderness and no edema Psych Appearance: grossly normal Course Vital Signs Vital signs: Vital Signs Pulse 87 11/10/22 10:12 Respiratory Rate 11/10/22 10:12 Blood Pressure 92/52 L 11/10/22 10:12 Pulse Oximetry 72 L 11/10/22 10:12 Pulse 87 11/10/22 10:12 Respiratory Rate 22 11/10/22 10:12 Blood Pressure 92/52 L 11/10/22 10:12 Pulse Oximetry 72 L 11/10/22 10:12 Oxygen Delivery Method Room Air 11/10/22 10:12 Oxygen Flow Rate 0 11/10/22 10:12 Lab/Test Results Lab/Test Results: 11/10/22 10:18 Blood Blood Culture - Pending 11/10/22 10:18 Blood Blood Culture - Pending Procedures Central Line Placement Right Femoral: Time Out Performed: Yes Patient Placed on Monitor/Pulse Ox: Yes MD Prep: mask, gown and gloves Central Line Prep: Chlorhexidine scrub Local Anesthetic: Lidocaine 1% Amount of anesthesia used (mL): 5 Ultrasound Used for Placement: Yes Central Line Lumen Inserted: triple Post Procedure: good blood return, all ports aspirated, flushed, capped and sutured in place with 3-0 nylon Patient Tolerated Procedure: well Complications: none Critical Care Time Critical Care Time Critical Care Time: Yes Total Critical Care Time: 65 Attestation: I spent greater than 65 minutes addressing this patient's immediate life threats. Please see MDM section of note. This time was spent engaged in work directly related to the patient's care, exclusive of separate procedures, and failure to initiate these interventions would have likely resulted in clinically significant or life threatening deterioration in the patient's condition.
[2022-11-10 10:38] LABS: HCT 36.4 % (40.0-50.0); HGB 11.9 g/dL (13.5-17.5); MCH 26.1 pg (27.0-33.0); MCHC 32.7 % (32.0-36.0); MCV 80 fL (80-95); Platelet Count 132 10^3/uL (130-400); RBC 4.56 10^6/uL (4.36-5.78); RDW 16.8 % (11.8-14.1); RDW-SD 48.8 fL; WBC 5.83 10^3/uL (4.4-10.8)
--- NOTE | 2022-11-10 10:45 | RT.EKG_ITS ---
APPROVED REPORT Exam: Resting ECG Reason for Exam: hypotension Patient Location: E HR:77 bpm ECG Measurements Heart Rate 77 AXIS VT 65 P 58 QRSd 85 QRS 48 QT 408 T 90 QTc 462 Conclusion Sinus rhythm...normal P axis, V-rate 60- 99 Anteroseptal infarct, age indeterminate...Q >35mS, T neg, V1-V2
[2022-11-10] MEDS: Lactated Ringers 500 ML IV (10:55)
[2022-11-10] MEDS: cefTRIAXone 2 GM/50 ML BAG IVPB (11:00)
--- NOTE | 2022-11-10 11:01 | W.PULMCC ---
General Date of Service Date of service: 11/10/22 Time of Service: 11:01 Reason for Admission to ICU: Septic Shock Hyponatremia Assessment and Plan Assessment and plan (1) Pneumonia: Status: Acute (2) Tobacco use disorder, moderate, dependence: Status: Chronic (3) Septic shock: Status: Acute (4) Acute hyponatremia: Status: Acute (5) Atrial fibrillation: Status: Acute (6) Hyperkalemia: Status: Acute (7) Respiratory acidosis: Status: Acute (8) Lactic acidosis: Status: Acute (9) Alcohol use disorder: Status: Chronic (10) Acute renal failure: Status: Acute (11) Hypoglycemia: Status: Acute (12) Elevated LFTs: Status: Acute (13) Respiratory failure with hypoxia: Status: Acute (14) Elevated troponin: Status: Acute (15) Altered mental status: Status: Acute (16) Thalassemia minor: Status: Chronic Assessment and plan: This is a 72 yo being admitted to the ICU for septic shock, acute hyponatremia and renal failure. His creatinine is not overly elevated and once a Conn was placed he did have some urine, so it does seem appropriate to keep him at [facility]. His septic shock is presumably from LLL pneumonia, but some of his hypotension is likely related to dehydration. He has been started on appropriate antibiotics, and I discussed with the ED provider about placing a femoral central line (patient not safe to lay flat currently and anticipated need for line is <72 hours). He initially did have hypoglycemia on fingerstick which was treated with D50 and is now back to normal. His blood pressure has been somewhat fluid responsive and his POCUS does not find an enlarged or plethoric IVC. There is no focal hypokinesis and EF appears to be likely normal. RV is not dilated. He does have signs of multi-organ dysfunction (kidney, brain, heart, liver, lungs) and does need supportive care for these. The differential for his hyponatremia most likely would be beer potomania or SIADH. We will get urine studies and frequent check of his electrolytes to monitor him closely. His sodium alread has risen to 120 with simple LR, so would recommend this be continued. Recommendations Pulmonary: Hypoxic and hypercapnic respiratory failure - recommend HFNC and BiPAP for sats 88-92% - recommend flow to 60L and titrate FiO2 to goal sat for HFNC - recommend 10/5 BiPAP titrate FiO2 to goal sat - IS - Acapella - Duonebs QID - respiratory therapy consult Smoking Cardiac: Septic Shock - due to LLL pneumonia - MAP >65mmHg - recommend levophed to achieve this if MAPs inadequate after IVF rescusitation - recommend central line - ED provider to place femoral - can consider arterial line if BP's borderline or persistent seed for pressors/inadequate cuffs - can consider hydrocortisone - C/A/P CT Elevated troponin - trend to plateau - ED EKG is non ischemic - repeat EKG with bumps in troponins and prn h/o of A. fib/ A. flutter not on AC - not on AC due to concern for falling with EtOH use Renal: Acute renal failure - IVF resuscitation - continue to trend - Conn - Strict I/O's Hyponatremia, likely beer potomania versus SIADH - recommend q4h electrolytes - continue LR - no need for hypertonic saline and DDAVP clamp currently - urine sodium and creatinine recommended - water restriction to 1500cc Hyperkalemia - improved with fluids Lactic acidosis - lactate already improved from 11 to 5 with IVF - continue IVF with LR - continue to trend to <3 Daily Fluid Goal:: positive GI Nutrition: Elevated transaminases - due to hypotension and hypoxia - continue to trend daily Infectious Disease: Pneumonia - agree with ceftriaxone and doxycycline - MRSA nares, blood and urine cultures - recommend sputum culture - urine antigens for legionella and strep pneumo - chest CT Hematologic: Anemia - chronic no acute concerns Neurologic: AMS - due to hyponatremia/CO2 retention/withdrawal - normal head CT - as below EtOh Withdrawal - consider 130mg prn boluses of phenobarb given hypotension - CIWA Endocrine: Hypoglycemia - resolved with D50 pushes Lines: PIV Conn Plan for CVC Prophylaxis: recommend chemical oox no indication for GI ppx Subjective Critical and life-threatening events over the past 24 hours: This is a 72 yo with h/o hypertension, A. flutter, smoking and alcohol use (8 bud lights a day) presenting to the ED with hypotension and hypoxia along with AMS. He say he felt normal 4 days ago but then began feeling unwell with a cough and weakness. He also mentioned he has not been urinating much in the past 3 days (only dribbles). He is conversation and answers questions appropriately. When asked about alcohol withdrawal he says he has never experienced this but his states that he has been 'shaky' for the past couple days. His labs reveal hyponatremia to 117, with signs of multi organ failure and an elevated lactate to 11. His CXR did find a LLL infiltrate so he was treated with ceftriaxone and doxycycline. His head CT is normal and a C/A/P CT is pending. Although he has no white count his neutrophil:lymphocyte ratio is quite elevated. On my assessment today he complains of hacking cough and chest congestion. Given the history of oliguria I asked for a Conn to be placed which did have some urine output. Exam Narrative Exam Narrative: Gen: NAD, normal respiratory effort, well-nourished HENT: PERRL, dry mucosa in mouth, left front forehead cyst/lipoma, right eye deviation (chronic per patients ) Chest: No respiratory distress, normal appearance of chest, LLL crackles, otherwise clear breath sounds Heart: regular rate and rhythym, no murmurs, rubs or gallops Abdomen: Non-distended, soft, non tender Extremities: No clubbing, edema, lower extremity stasis changes Neuro: AAOx3 , non focal Psych: cooperative, appropriate mental affect Most Recent VS/Results Last Vital Signs Temp 36.8 C 11/10/22 10:12 Pulse 87 11/10/22 10:12 Resp 28 H 11/10/22 10:39 BP 92/52 L 11/10/22 10:12 Pulse Ox 98 11/10/22 10:53 Laboratory Results - last 24 hr 11/10/22 11/10/22 10:18 10:21 VBG Lactate 11.0 H* Sodium Cancelled Potassium Cancelled Chloride Cancelled Carbon Dioxide Cancelled Anion Gap Cancelled BUN Cancelled Creatinine Cancelled Est GFR (CKD-EPI 2020) Cancelled Glucose Cancelled Calcium Cancelled Total Bilirubin Cancelled AST Cancelled ALT Cancelled Alkaline Phosphatase Cancelled Total Protein Cancelled Albumin Cancelled Review of Systems All systems reviewed & are unremarkable except as noted in HPI and below Time spent with patient Time spent in Critical Care: 75 Time spent in Critical care included: Coordination of care, Chart review, Documenting critically ill care, Time at immediate bedside and Discussing critically ill care with other medical staff Pocus Exam Limited Cardiac Exam DATE OF EXAM: 11/10/22 TIME OF EXAM: 12:00 PROVIDER THAT PERFORMED THE STUDY: Kae E Duchene IS THIS A REPEAT EXAM DURING THIS ENCOUNTER: no REASON FOR EXAM: Hypotension VISUALIZED STRUCTURES: four chambers, aortic valve, mitral valve, Interventricular septum and IVC VIEW OBTAINED: Apical 4-Chamber, Parasternal long-axis, Parasternal short-axis and Subxiphoid PERTINENT FINDINGS/IMPRESSION: IVC inspiratory collapsability and No apparent abnormalities; No LV dysfunction, No pericardial effusion and No RV dysfunction Exam complete
[2022-11-10 11:05] LABS: Troponin I 1972 ng/L (<or=60)
[2022-11-10] MEDS: Dextrose 50%-Water 25 GM/50 ML SYR IVP (11:14)
[2022-11-10] MEDS: DEXTROSE 5%-WATER 1,000 ML 150 ML IV (11:15)
[2022-11-10 11:23] LABS: Absolute Lymphocyte Count 0.23 10^3/uL (1.2-3.4); Absolute Monocyte Count 0.06 10^3/uL (0.1-0.8); Absolute Neutrophil Count 5.01 10^3/uL (1.2-6.7); Anisocytosis 2+; Bands % 60; Diff Comment Manual Differential; Metamyelocytes % 9; Microcytosis 1+
[2022-11-10 11:29] LABS: BE (Venous) -8 mmol/L (-2-3); HCO3 (Venous) 19 mmol/L (23-28); O2 Sat (Venous) 51 %; TCO2 (Venous) 19 mmol/L (24-29); pCO2 (Venous) 43 mmHg (41-51); pH (Venous) 7.26 (7.31-7.41); pO2 (Venous) 33 mmHg
[2022-11-10] MEDS: DOXYCYCLINE 100 MG in Normal Saline 100 ML IVPB (11:35)
--- NOTE | 2022-11-10 11:45 | DI.CT_ITS ---
Exam(s) CT HEAD WO EXAM: CT HEAD WO CLINICAL HISTORY: altered mentation. TECHNIQUE: Imaging Protocol: Axial computed tomography images with coronal and sagittal reformatted images were created and reviewed COMPARISON: No exams were available for comparison FINDINGS: Ventricles and Extra axial spaces: Normal in size and morphology for the patient's age. Hemorrhage: None. Cerebral parenchyma: No evidence of acute infarct or mass. Mild atrophy. Mild white matter changes of small vessel disease. Midline shift: None. Brainstem/Cerebellum: Normal. Calvarium: Normal. Visualized Paranasal sinuses/Mastoids: Minimal mucosal thickening at the floor of the left maxillary sinus. Soft Tissues: Lipoma left frontal scalp. IMPRESSION: No acute intracranial process. RADIATION DOSE DELIVERED: Total DLP DATA REPOSITORY: All CT scans at this facility are submitted to the National Radiology Data Registry (NRDR) Dose Index Registry (DIR) with the [employer] (A[employer]). RADIATION OPTIMIZATION: All CT scans at this facility use at least one of these dose optimization te chniques: automated exposure control; mA and/or kV adjustment per patient size (includes targeted exa ms where dose is matched to clinical indication); or iterative reconstruction.
[2022-11-10 11:47] LABS: ALT 28 U/L (16-63); AST 109 U/L (15-37); Alkaline Phosphatase 34 U/L (46-116); Anion Gap 11.4 mmol/L (3-11); BUN 7 mg/dL (7-18); Bilirubin, Total 1.1 mg/dL (0.2-1.0); CO2 19.6 mmol/L (21.0-32.0); CREATININE 1.4 mg/dL (0.70-1.30); Calcium 7.6 mg/dL (8.5-10.1); Chloride 86 mmol/L (98-107); Estimated GFR 53.74 (mL/min/1.73m2); Glucose 192 mg/dL (74-106); Potassium 5.5 mmol/L (3.5-5.1); Total Protein 4.9 g/dL (6.4-8.2)
[2022-11-10 11:48] LABS: Sodium 117 mmol/L (136-145)
[2022-11-10] MEDS: Lactated Ringers 1,000 ML 1000 ML IV (12:10)
[2022-11-10 12:13] LABS: Bilirubin Small (Negative); Blood Large (Negative); Clarity Clear (Clear); Glucose 250 mg/dL (Negative); Ketones Negative (Negative); Leukocyte Esterase Negative (Negative); Nitrite Negative (Negative); Specific Gravity >= 1.030 (1.005-1.025)
--- NOTE | 2022-11-10 12:15 | DI.CT_ITS ---
Exam(s) CT CHEST/ABD/PEL WO EXAM: CT CHEST/ABD/PEL WO CLINICAL HISTORY: fever, multisystem organ. TECHNIQUE: Imaging Protocol: Axial computed tomography images with coronal and sagittal reformatted images were created and reviewed CONTRAST MATERIAL: Noncontrast Oral: / no COMPARISON: CT CHEST WITH CONTRAST from 04/01/2015 CR XR PORTABLE CHEST AP from 11/10/2022 FINDINGS: CHEST: Exam is limited by patient motion. Tracheobronchial tree: Patent where visualized. Pulmonary parenchyma: Large dense consolidated infiltrate in the left lower lobe. Significant infilt rate also present in the right lower lobe. Additional medial density in the right upper lobe, infilt rate versus mass. This area is significantly obscured by motion. Stable smoothly marginated pleural based nodule laterally in the right lower lobe. Pleura: Tiny left pleural effusion. Lymph nodes: Within normal limits. Aorta: Thoracic portion non-dilated. Heavily calcified Heart: Enlarged. Severe coronary artery calcifications. Bones: Unremarkable for age. No lytic or blastic lesions.No compression fractures. ABDOMEN: Liver: Normal density. No measurable mass. Gallbladder and biliary tract: No radiodense calculus or dilation. Pancreas: Atrophic. Coarse calcifications. Spleen: Normal. Kidneys: Left pelvic kidney. No radiodense stones or obstructive uropathy. No suspicious masses seen . Adrenal glands: No masses seen. Aorta: Abdominal portion non-dilated. Severe atherosclerotic changes with occlusion just below the le suha of the right renal artery. Heavy calcification occluding the left common, internal and external iliac arteries. Severe narrowing proximal right common iliac artery. Multifocal occlusion in the di stal right external iliac artery and proximal femoral artery. Right femoral venous catheter. Lymph nodes: Within normal limits. Soft tissues: Right inguinal hernia containing the appendix which is not inflamed. Surgical clips in left lower quadrant abdominal wall. PELVIS: Bladder: Decompressed by Conn catheter. Bowel: No obstruction or bowel wall thickening. Diverticulosis. No evidence of diverticulitis. Norm al quantity of stool. appendix extends inferiorly into the right inguinal canal. No inflammation. Peritoneal cavity: No ascites, collection or mesenteric inflammatory response. Bones: Mild L1 compression fracture. Degenerative changes. Reproductive organs: Within normal limits. IMPRESSION: Chest: Large area of consolidation in the left lower lobe. Small left pleural effusion. Milder infi ltrates seen in right lower and right upper lobe. Question of medial right upper lobe infiltrate kirill luis e mass. Abdomen and pelvis: No acute abnormality identified. Multifocal areas heavy calcification causing occlusion of the mid aorta and bilateral iliac arteries . RADIATION DOSE DELIVERED: Total DLP DATA REPOSITORY: All CT scans at this facility are submitted to the National Radiology Data Registry (NRDR) Dose Index Registry (DIR) with the [employer] (ACR). RADIATION OPTIMIZATION: All CT scans at this facility use at least one of these dose optimization te chniques: automated exposure control; mA and/or kV adjustment per patient size (includes targeted exa ms where dose is matched to clinical indication); or iterative reconstruction.
[2022-11-10 12:20] LABS: Bacteria Negative HPF (Negative); C & S Indicated? No; Casts 20-50 Hyaline LPF (Negative); Crystals Negative HPF (Negative); Epithelial Cells Negative HPF (Negative); Mucus Negative (Negative); Other Cells Mod Transitional (Negative); WBC 0-2 HPF (0-5)
--- NOTE | 2022-11-10 12:54 | W.PM.HP.N ---
Date of service: 11/10/22 Time of Service: 12:54 Assessment and Plan Assessment and plan (1) Septic shock: Status: Acute Assessment and plan: Due to pneumonia, present on admission. Broaden antibiotics to vancomycin/cefepime/doxycycline. Steroids. IVF + vasopressor support. Trend lactates. Has a R femoral CVL. (2) Acute on chronic respiratory failure with hypoxia and hypercapnia: Status: Acute Assessment and plan: Due to pneumonia. Very difficult to oxygenate even despite high PEEP on the vent. Concern for a possible shunt, possible due to an acute PE. Start anticoagulation. Dr Haq is at the bedside placing an arterial line in order to both monitor BPs and O2 sats. We are seeking transfer to a tertiary care facility. (3) Respiratory acidosis: Status: Acute Assessment and plan: Due to another above As above (4) Multifocal pneumonia: Status: Acute Assessment and plan: As above (5) Acute hyponatremia: Status: Acute Assessment and plan: ?adrenal insufficiency, SIADH, beer potomania. IMproving on physiologic fluids. Trend labs Q4hrs (6) Elevated troponin: Status: Acute Assessment and plan: ?true ACS vs demand ischemia vs PE Start anticoagulation. Trend troponins. EKG w/o ischemia. (7) Acute hyperkalemia: Status: Resolved Assessment and plan: ? adrenally insufficient. Resolved. Started on steroids. (8) Toxic metabolic encephalopathy: Status: Acute Assessment and plan: DUe to above As above (9) Hypoglycemia: Status: Acute Assessment and plan: In setting of septic shock, possible adrenal insufficiency. On D5 fluids and steroids. Monitor. (10) Lactic acidosis: Status: Acute Assessment and plan: Improving. Continue IVF, abx, vasopressors. (11) Alcohol dependence: Status: Chronic Assessment and plan: Monitor for withdrawal, as he does have a h/o of it. (12) Peripheral arterial disease: Status: Chronic Assessment and plan: Should he survive this, it would need to be followed up by vascular surgery. (13) DVT prophylaxis: Status: Acute Assessment and plan: Therapeutic heparin gtt (14) Discharge planning issues: Status: Acute Assessment and plan: Full code Discussed with Edinson Haq and Kevin. Total Critical Care Time 180 minutes. History of Present Illness History of Present Illness Chief Complaint: Cough, malaise, confusion Narrative: Mr Raya is a 72 year old w/ PMHx of Afib, not on anticoagulation, PVD, hypertension, hyperlipidemia, alcohol abuse w/ h/o alcohol withdrawal but not alcohol withdrawal seizures (drinks 8 beers a days, last drink 72 hrs ago), thalassemia minor, tobacco abuse, who was in his usual state of health until about 3-4 days ago when he developed a productive cough, started to feel unwell, became weaker to the point of having difficulty walking. Yesterday he was short of breath. The history is being provided by the patient's at bedside. This morning his symptoms were so severe that his drove him to the ER, but had difficulty getting him to the car - he fell hitting his leg or knee - the is not sure. She does not believe he hurt himself. She has noted he has been having slurred speech today, but does not think he's been confused. He has had poor PO intake for the last couple of days and reports a decreased amount of urination. On arrival to the ER, he was saturating 72 % on RA. He was placed on a high flow nasal cannula. He was hypotensive to 92/52. He was started on IVF. His workup is c/w septic shock due to pneumonia by CXR and CT. His sodium was 117, K 5.5, fingerstick glucose was 55. His lactate was 11. His troponin was 1972 without evidence of ischemia on the EKG. This was felt to be due to demand ischemia. His hypoglycemia was corrected with boluses of D50 and initiation of D5 fluids. He was initiated on empiric doxycycline/ceftriaxone. Hospitalist admission to the ICU was requested. Upon arrival to the ICU, the patient was requiring 100% FiO2 by nonrebreather. He was transitioned to BiPAP 14/7 with FiO2 of 90% saturating in the 80s. His FiO2 was then increased to 100% with O2 sats improving to 94%. Given overall clinical trend and the oxygen requirement, the decision was made to intubate the patient. This was done by Dr Haq with anesthesia at bedside using a glidescope. The patient became transiently hypotensive, but BP responded to a small boluses of epinephrine (0.3 mg). The patient is now on the ventilator, propofol for sedation, norepinephrine running. Vasopressin is ordered should more pressor support be needed. Ventilator settings are being titrated, but there has been difficulty getting O2 sats to be above 80%. The patient is full code. Review of Systems All systems reviewed & are unremarkable except as noted in HPI and below PFSH All Active Problems (Updated 11/10/22 @ 17:17 by Susanna Barrios MD) Discharge planning issues (Acute) DVT prophylaxis (Acute) Peripheral arterial disease (Chronic) Toxic metabolic encephalopathy (Acute) Multifocal pneumonia (Acute) Acute on chronic respiratory failure with hypoxia and hypercapnia (Acute) Respiratory acidosis (Acute) Sepsis (Acute) Left lower lobe pneumonia (Acute) Acute hyponatremia (Acute) Elevated troponin (Acute) Acidosis (Acute) Hypocalcemia (Acute) Hypoxia (Acute) Altered mental status (Acute) Elevated troponin (Acute) Respiratory failure with hypoxia (Acute) Elevated LFTs (Acute) Hypoglycemia (Acute) Acute renal failure (Acute) Lactic acidosis (Acute) Hyperkalemia (Acute) Acute hyponatremia (Acute) Septic shock (Acute) Pneumonia (Acute) Sensorineural hearing loss (SNHL) of both ears (Acute) Impacted cerumen of left ear (Acute) Erectile dysfunction (Acute) BPH loc w urin obs/LUTS (Acute) Back pain (Acute) Right hip pain (Acute) Fall (Acute) Atrial fibrillation (Acute 02/17/14) Exotropia, right eye (Chronic) Tobacco use disorder, moderate, dependence (Chronic 04/23/1966) 1.5 PPD, WANTS TO CONTINUE Thalassemia minor (Chronic 10/30/08) 2008 MCV 75, NORMAL IRON STUDIES Peripheral vascular disease with claudication (Chronic 06/20/00) VASC CALCIFICATIONS ON BACK X-RAY 05/2000; R ING BRUIT, PULSES intact, AB pressures: R 140/160, L 110/140 04/24/13 A:B pressures R 1.21; L 0.87 Paroxysmal atrial fibrillation (Chronic 02/17/14) paroxysmal, ECHO EF 60%; nl RV, no valve dis; CHADS-VASc score 2, see 03/16/15 ov re anticoagulation Other hyperlipidemia (Chronic 04/23/00) GOAL LDL<70 DUE TO PVD, SMOKING Hyposmolality (Chronic 06/20/11) LOW NA, 2015 persists off HCTZ: ? EtOH; ?SIADH lung dis Hypochromic microcytic anemia with iron overload (Chronic 12/14/16) C282Y: Not detected; H63D: Not detected.; Ferritin >2000; Fe/TIBC 237/326; Weekly phlebotomy begun 01/10/17 Hepatic steatosis (Chronic 02/29/16) 02/29/16 abdominal Ultrasound diagnosis Hyperlipidemia (Chronic 04/23/00) GOAL LDL<70 DUE TO PVD, SMOKING Essential hypertension (Chronic) Atrial fibrillation, chronic (Chronic 02/17/14) paroxysmal, ECHO EF 60%; nl RV, no valve dis; CHADS-VASc score 2, apixaban rec but hold due to EtOH use Alcohol use disorder (Chronic 04/23/10) 5 BEERS/NIGHT, NO INTOXICATION; ELEVATED GGT >300, ALT/AST NL Abnormal liver enzymes (Chronic 12/14/16) Abnormal chest xray (Chronic 02/20/14) nodule ? R mid lung laterally; confirmed on CT, smooth, rec f/u CT 3 mos NO CHANGE, ?rpt 6-9 mos Alcohol dependence (Chronic 04/23/10) 5 BEERS/NIGHT, NO INTOXICATION; ELEVATED GGT >300, ALT/AST NL Medical History Boil of buttock Surgical History History of colonoscopy History of hernia repair History of surgical amputation of finger of right hand History of tonsillectomy Hx of cataract extraction Hx of tooth extraction pt. reports no teeth Family History Mother , [place] at age 87. CAD (coronary artery disease) Myocardial infarction Lung cancer Father , [place] at age 73. Diabetes MS (multiple sclerosis) Brother No problems noted. Brother No problems noted. Brother No problems noted. Social History Smoking/Tobacco Use Status: Current every day Tobacco Type: cigarettes Smoking packs per day: 1.5 Smoking cigarettes per day: 30.0 Years smoked: 50 Smoking pack-years: 75.00 Quit status: not considering quitting Smoking risk assessment performed?: Yes Alcohol Intake: current Alcohol Intake frequency: 3 or more drinks per day Alcohol type: beer Details: pt drinks 8-10 beers daily Drug use: Never Substance use type: does not use Details: 8-12 beers a day Adopted: No Caregiver/Support person: No Foster care: No Household members: spouse Housing: house Number of Children: 0 Communication Needs: None Do you need help understanding health information?: Often current occupation: retired from factory work Pets and animals: Yes Pets and animals: cat(s) and dog(s) What is your relationship status?: How often do you talk on the phone with friends or family?: once per week How often do you get together with friends or relatives?: once per week Panel score (0-1 are the most socially isolated patients): 1 What type of physical activity do you participate in: none Seatbelt use: always Drive intox or ride w/intox spike driver: No ( does driving for most part) Working smoke detector in home: Yes Fire extinguisher in home: Yes Carbon monox detector in home: Yes Firearms in home: No Do you feel safe at home: Yes Do you feel safe in your relationship?: Yes Meds Allergies and Home Medications Allergies Allergy/AdvReac Type Severity Reaction Status Date / Time No Known Allergies Allergy Verified 08/14/22 11:15 Home Medications Medication Instructions Recorded Confirmed Type aspirin 81 mg tablet,delayed 81 mg PO DAILY #100 tabs 02/20/14 11/10/22 History release albuterol sulfate 90 mcg/actuation 1 puff inhalation Q6H PRN 12/08/21 11/10/22 Rx aerosol inhaler (Ventolin HFA) shortness of breath or wheezing #18 grams amlodipine 10 mg-benazepril 20 mg 1 cap PO DAILY #90 tab-caps 12/08/21 11/10/22 Rx capsule metoprolol succinate 50 mg 50 mg PO DAILY #90 tabs 12/08/21 11/10/22 Rx tablet,extended release 24 hr Exam Narrative Exam Narrative: General: Ill appearing male initially on nonrebreather, then BiPAP, and now intubated Neurological: Initially no focal deficits; speech hard to assess as on BiPAP for majority of interview, A&Ox2 (knew it was October of 2022), currently sedated Psychiatric: appropriate speech pattern/content when awake; currently, sedated Skin: changes of venous stasis in BLEs HEENT: Atraumatic, normocephalic, EOMI, dry MM, clear oropharynx, no submandibular or cervical lymphadenopathy, no goiter or JVD initially. Now intubated - ET tube in place. Cardiovascular: RRR, no m/r/g Lungs: Rhonchi and rales B lung lima Gastrointestinal: soft, nontender, nondistended Genitourinary: has a graves Extremities: no edema BLEs, venous stasis, BLEs cool, unable to palpate pedal pulses Results Imaging Additional studies: CXR #1: Left lower lobe pneumonia. CT head: No acute intracranial process. CT chest/abdomen/pelvis: Chest: Large area of consolidation in the left lower lobe.? Small left pleural effusion.? Milder infiltrates seen in right lower and right upper lobe.? Question of medial right upper lobe infiltrate versus mass. Abdomen and pelvis: No acute abnormality identified. Multifocal areas heavy calcification causing occlusion of the mid aorta and bilateral iliac arteries . CXR: LLL infiltrate, cephalization w/ bilateral vascular fullness. ET tube in place EKG: HR 77, NSR, no acute ischemia Labs 11/10/22 10:21 11/10/22 13:40 Labs: Laboratory Results - last 24 hr 11/10/22 11/10/22 11/10/22 10:18 10:21 10:21 WBC 5.83 RBC 4.56 Hgb 11.9 L Hct 36.4 L MCV 80 MCH 26.1 L MCHC 32.7 RDW 16.8 H Plt Count 132 MPV Immature Gran % See Differential Neutrophils % 26.0 Band Neutrophils % 60 Lymphocytes % 4.0 Monocytes % 1.0 Eosinophils % 0.0 Basophils % 0.0 Metamyelocytes % 9 Nucleated RBC % 0.0 Absolute Neutrophils 5.01 Absolute Lymphocytes 0.23 L Absolute Monocytes 0.06 L Absolute Eosinophils 0.00 Absolute Basophils 0.00 RBC Morphology See Below Anisocytosis 2+ Microcytosis 1+ VBG pH VBG pCO2 VBG pO2 VBG HCO3 VBG Total CO2 VBG O2 Saturation VBG Base Excess VBG Lactate Sodium Cancelled Potassium Cancelled Chloride Cancelled Carbon Dioxide Cancelled Anion Gap Cancelled BUN Cancelled Creatinine Cancelled Est GFR (CKD-EPI 2020) Cancelled Glucose Cancelled Calcium Cancelled Total Bilirubin Cancelled AST Cancelled ALT Cancelled Alkaline Phosphatase Cancelled Troponin I 1972 H* Total Protein Cancelled Albumin Cancelled Urine Color Urine Clarity Urine pH Ur Specific [place] Urine Protein Urine Ketones Urine Blood Urine Nitrite Urine Bilirubin Urine Urobilinogen Ur Leukocyte Esterase Urine RBC Urine WBC Ur Epithelial Cells Urine Crystals Urine Bacteria Urine Casts Urine Mucus Urine Other Ur Culture Indicated? Urine Glucose 11/10/22 11/10/22 11/10/22 10:21 11:20 11:20 WBC RBC Hgb Hct MCV MCH MCHC RDW Plt Count MPV Immature Gran % Neutrophils % Band Neutrophils % Lymphocytes % Monocytes % Eosinophils % Basophils % Metamyelocytes % Nucleated RBC % Absolute Neutrophils Absolute Lymphocytes Absolute Monocytes Absolute Eosinophils Absolute Basophils RBC Morphology Anisocytosis Microcytosis VBG pH 7.26 L VBG pCO2 43 VBG pO2 33 VBG HCO3 19 L VBG Total CO2 19 L VBG O2 Saturation 51 VBG Base Excess -8 L VBG Lactate 11.0 H* Sodium 117 L* Potassium 5.5 H Chloride 86 L Carbon Dioxide 19.6 L Anion Gap 11.4 H BUN 7 Creatinine 1.4 H Est GFR (CKD-EPI 2020) 53.74 Glucose 192 H Calcium 7.6 L Total Bilirubin 1.1 H AST 109 H ALT 28 Alkaline Phosphatase 34 L Troponin I Total Protein 4.9 L Albumin 2.0 L Urine Color Urine Clarity Urine pH Ur Specific [place] Urine Protein Urine Ketones Urine Blood Urine Nitrite Urine Bilirubin Urine Urobilinogen Ur Leukocyte Esterase Urine RBC Urine WBC Ur Epithelial Cells Urine Crystals Urine Bacteria Urine Casts Urine Mucus Urine Other Ur Culture Indicated? Urine Glucose 11/10/22 12:02 WBC RBC Hgb Hct MCV MCH MCHC RDW Plt Count MPV Immature Gran % Neutrophils % Band Neutrophils % Lymphocytes % Monocytes % Eosinophils % Basophils % Metamyelocytes % Nucleated RBC % Absolute Neutrophils Absolute Lymphocytes Absolute Monocytes Absolute Eosinophils Absolute Basophils RBC Morphology Anisocytosis Microcytosis VBG pH VBG pCO2 VBG pO2 VBG HCO3 VBG Total CO2 VBG O2 Saturation VBG Base Excess VBG Lactate Sodium Potassium Chloride Carbon Dioxide Anion Gap BUN Creatinine Est GFR (CKD-EPI 2020) Glucose Calcium Total Bilirubin AST ALT Alkaline Phosphatase Troponin I Total Protein Albumin Urine Color Yellow Urine Clarity Clear Urine pH 5.0 Ur Specific [place] >= 1.030 H Urine Protein 30 H Urine Ketones Negative Urine Blood Large H Urine Nitrite Negative Urine Bilirubin Small H Urine Urobilinogen 1.0 H Ur Leukocyte Esterase Negative Urine RBC 5-10 H Urine WBC 0-2 Ur Epithelial Cells Negative Urine Crystals Negative Urine Bacteria Negative Urine Casts 20-50 Hyaline Urine Mucus Negative Urine Other Mod Transitional Ur Culture Indicated? No Urine Glucose 250 H Last Vital Signs Temp 36.8 C 07/21/23 10:12 Pulse 82 11/10/22 11:31 Resp 32 H 11/10/22 11:44 BP 95/53 L 11/10/22 11:31 Pulse Ox 93 11/10/22 11:32 Time Spent Time spent with Patient: >75 minutes (180 minutes) Time was spent: preparing to see the patient(eg.review tests), obtaining and/or reviewing separately otained hiistory, ordering medications,tests, procedures, referring, communicating with other health home visit field care manager, indepentently interpreting results, counseling the patient and care coordination
[2022-11-10 13:10] LABS: Lab Add On Test DONE
[2022-11-10] MEDS: DEXTROSE 5%-LACTATED RINGERS 1,000 ML 150 ML IV (13:15)
[2022-11-10 13:18] LABS: Source Nasal/Nares
--- NOTE | 2022-11-10 13:25 | NUR.NOTE ---
Nursing Note: Right fem triple lumen placed by Dr Brown; pt noted to has sats in high 70s to mid 80s on 10L hi monique nasal cannula; RT paged for support.
[2022-11-10 13:32] LABS: C-Reactive Protein 13.63 mg/dL (0.0-0.3); FREE T4 0.96 ng/dL (0.76-1.46); NT-proBNP > 35000 pg/mL (<300); TSH 1.71 uIU/mL (0.36-3.74)
[2022-11-10] MEDS: Albuterol/Ipratropium 3 ML UPD VIAL UPD ×3 (13:36→19:08)
--- NOTE | 2022-11-10 13:41 | NUR.NOTE ---
Nursing Note: Report to Curtis SERRATO in ICU
[2022-11-10 13:45] LABS: BE (Venous) -5 mmol/L (-2-3); HCO3 (Venous) 23 mmol/L (23-28); O2 Sat (Venous) 51 %; TCO2 (Venous) 23 mmol/L (24-29); pCO2 (Venous) 60 mmHg (41-51); pO2 (Venous) 36 mmHg
[2022-11-10 13:46] LABS: Procalcitonin 11.1 ng/mL
[2022-11-10 13:48] LABS: pH (Venous) 7.19 (7.31-7.41)
[2022-11-10 13:50] LABS: COVID-19 PCR Negative (Negative)
[2022-11-10 13:51] LABS: Lactate 5.7 MMOL/l (0.9-1.7)
[2022-11-10 13:59] LABS: Anion Gap 6.7 mmol/L (3-11); BUN 8 mg/dL (7-18); CO2 24.3 mmol/L (21.0-32.0); CREATININE 1.2 mg/dL (0.70-1.30); Calcium 7.9 mg/dL (8.5-10.1); Chloride 89 mmol/L (98-107); Estimated GFR 64.65 (mL/min/1.73m2); Glucose 146 mg/dL (74-106); Potassium 4.4 mmol/L (3.5-5.1)
[2022-11-10 14:04] LABS: Sodium 120 mmol/L (136-145)
--- NOTE | 2022-11-10 14:15 | NUR.NOTE ---
Nursing Note: Patient transported to CT at approx 1400 then onto ICU bed 219 via stretcher with RN and rad transporter at approx 1415; pt on [id number] per [employer] instruction. All belongings with .
[2022-11-10] MEDS: Hydrocortisone SOD SUC. 100 MG VIAL 50 MG IVP ×2 (14:53→14:57)
[2022-11-10] MEDS: Norepinephrine in D5W 8 MG/250 ML BAG 9.375 MG IV (15:26)
[2022-11-10] MEDS: Ketamine 500 MG/10 ML VIAL 100 MG IVP (15:35)
[2022-11-10] MEDS: EPINEPHrine 1 MG/ML AMP pres-free 0.3 MG IVP (15:41)
[2022-11-10] MEDS: PROPOFOL 1,000 MG/100 ML BTL 14.696 MG IVPB (15:45)
[2022-11-10 16:17] LABS: Troponin I 2342 ng/L (<or=60)
--- NOTE | 2022-11-10 16:17 | DI.RAD_ITS ---
Exam(s) XR PORTABLE CHEST AP POST LINE EXAM: XR PORTABLE CHEST AP POST LINE CLINICAL HISTORY: confirm ET tube placement TECHNIQUE: 2D digital imaging was performed of the chest. Two images were obtained. AP views were obtained. COMPARISON: CR XR PORTABLE CHEST AP from 11/10/2022 FINDINGS: Two images were obtained. MEDIASTINUM: Normal. HEART: Within normal limits. PULMONARY VASCULATURE: Normal. LUNGS: Clear. PLEURAL SPACE: There is a left pleural effusion. There is no evidence of a right pleural effusion. No pneumothorax is present. BONE:Within normal limits for the patient's age. OTHER FINDINGS:The tip of the endotracheal tube on the 2nd film is 5 cm from the yoanna. IMPRESSION: 1. The tip of the endotracheal tube is 5 cm from the yoanna on the 2nd chest x-ray timed at 4:02 p.m. 2. Left pleural effusion. DATA REPOSITORY: RADIATION DOSE DELIVERED:
[2022-11-10 16:52] LABS: INR 1.4 (0.9-1.1); PTT Activated 33.7 sec (21.5-31.9); Prothrombin Time 14.5 sec (9.3-11.0)
[2022-11-10 17:09] LABS: BE -5 mmol/L (-2-3); HCO3 24 mmol/L (22-26); pO2 62 mmHg (80-105); sO2 83 % (95-98); tCO2 24 mmol/L (23-27)
[2022-11-10 17:11] LABS: D-Dimer 4052 ng/mlFEU (<500)
[2022-11-10 17:12] LABS: FIO2 100 %; Site Left Brachial
[2022-11-10 17:15] LABS: pCO2 70 mmHg (35-45); pH 7.14 (7.35-7.45)
[2022-11-10] MEDS: Normal Saline Flush 10 ML SYR IVP ×2 (17:34→17:49)
[2022-11-10] MEDS: Pantoprazole 40 MG VIAL IVP (17:34)
[2022-11-10] MEDS: methylPREDNISolone SUCC 125 MG VIAL IVP (17:45)
[2022-11-10] MEDS: Heparin in 0.45% NaCl 25,000 UNIT/250 ML BAG 11 UNIT IV (18:27)
[2022-11-10] MEDS: CEFEPIME 2 GM in Normal Saline 100 ML IVPB (18:36)
[2022-11-10] MEDS: THIAMINE 500 MG in Normal Saline 100 ML 200 MG IVPB (18:40)
--- NOTE | 2022-11-10 18:43 | W.EVENT ---
Date of service: 11/10/22 Time of Service: 15:00 Event Note: Messaged by Dr. Barrios that patient arrived to ICU and was clinically deteriorating. On my arrival to ICU the patient was on BiPAP 14/, FiO2 100% and saturating in the high 80's. I worried about his impending respiratory failure and concern so discussed intubation with him and his . They agreed to have this done. His labs seemed to be improving, although he had developed respiratory acidosis which I believed to be driving much of his respiratory issues in addition to the pneumonia. Given the BiPAP failure we did intubate him (see procedure note). Anesthesia was in the room as this was a high risk intubation with a lot of potential for potential issues. During intubation his SpO2 only got as low as 82%, however post intubation, his SpO2 desaturated to the 70's. It was found that the ventilator was not attached to wall O2. The patient was bagged by anesthesia until with was remedied. Once this was solved and the patients SpO2 was back in the 80's he was put back on the ventilator. During this same post intubation time frame, he became severely hypotensive with MAPS in the 30's. He was on Levophed (which I had running during the intubation) and despite this rapidly being increased to 20, his blood pressure remained very low so I ordered 0.3mcg epinephrine be given, which did buy time with rembertord to his vitals to allow for more infusion of Levophed. Due to the mini-epi push he had a 5 beat run of V-tach, which self resolved. Unfortunately despite Levophed >20mcg his blood pressure was not appropriate, so vasopressin was added, in addition to giving a dose of higher dose steroids. We decided at that time to also anticoagulate him with heparin - his RV on POCUS was not concerning for a hemodynamically significant PE and his EKG was non ischemic in addition to troponins appearing to start plateauing, so I decided against tPA. Arterial line was placed (see separate note) and this confirmed the cuff pressures as accurate. ABG pulled from the arterial line (2 failed ABG attempts previously) confirmed the SpO2 was accurate. Given the worsened respiratory acidosis I did increase the RR on his vent to 18 from 12. Discussion occurred with the patients by myself and Dr. Barrios, who confirmed she still wishes for full code in him. She was made aware of his very serious illness and the growing odds that he may not survive this illness. Dr. Barrios was able to get the patient accepted [place] [facility] [place]. On ventilator mechanics assessment he was on maximal ventilation settings, with pulmonary dynamics concerning for a serious shunt process with decent lung compliance and an appropriate driving pressure. I did attempt pressure control, but this did not improve oxygenation so I reverted back to volume control. Our ventilators cannot provide APRV so this was not attempted. I did increase his PEEP to 10 which did not increase his driving pressure at all and he had safe peak pressure with this as well. At time of my departure, he was on maximal life support, on maximum ventilator settings, on 3 vasopressors, antibiotics broadened to cefepime, vanc, and doxy, was being anti-coagulated, had an ETT, Conn, right femoral central line, left axillary arterial line. Patients at bedside, other family en route and Dr. Barrios coordinating transfer. Time Spent with Patient Time spent in critical care(minutes): 150 Time Spent Included: Coordination of care, Chart review, Documenting critically ill care, Time at immediate bedside, Discussing critically ill care with other medical staff and Discussing Hx and/or treatment with family
[2022-11-10] MEDS: VANCOMYCIN/WATER (PEG) 1 GM/200 ML BAG IVPB (18:53)
[2022-11-10 19:00] LABS: Lactate 5.9 mmol/L (0.6-1.4)
--- NOTE | 2022-11-10 19:01 | W.PM.OP ---
Date of service: 11/10/22 Time of Service: 17:00 Operative Note Operative Note PRE-OP DIAGNOSIS: Septic Shock PROCEDURE: Arterial Line Placement Performed by: Kae Haq MD Indications and/or Provisional Diagnosis: Invasive hemodynamic monitoring Consent: Emergency procedure Type of Anesthesia/Sedation: Not required Fluids Given: See I&O Unless otherwise noted, there was no blood loss, specimens removed, cultures obtained, or drains retained. Time Out: A time-out was completed prior to procedure verifying correct patient, procedure, site, positioning, and special equipment if applicable. Procedure Technique/Description of Procedure: left radial arterial line attempted twice without success despite one successful cannulation, like due to severe atherosclerotic disease visible creating a mechanically difficult procedure. The patient was prepped and draped in the usual sterile fashion. An arterial line was introduced percutaneously and via the Seldinger technique into the left axillary artery after 1 attempt(s). Good blood return without significant extremity blanching was noted. Good arterial wave form was noted. Blood loss was minimal. Post Procedure Diagnosis and Findings: Same as Indications and/or Provisional Diagnosis Complications: failed left radial attempt x2 with resultant hematoma. Kae Haq MD Pulmonary & Critical Care Refer to Anesthesia Record
--- NOTE | 2022-11-10 19:05 | ROE_ITS ---
Date of service: 11/10/22 Time of Service: 14:00 Operative Note Operative Note PRE-OP DIAGNOSIS: Respiratory Failure PROCEDURE: Endotracheal Intubation Consent was verbally obtained by patient and his after a discussion regarding risks and benefits of intubation. Sedation: Ketamine 100mg, Rocuronium 100mg After a thorough time out was perfomed identifying patient name and procedure as well as a clear intubation plan, the patient was positioned in an upright position given severe hypoxia despite BiPAP 100%. BiPAP was left on patient until intubation occured. Levophed was running along with IVF through central line. SpO2 audible and BP recycling every 3 min. Using a Glydescope 4 blade patient was intubated with 1 attempt with no difficulty. Appropriate breath sounds and EtCO2 color change. Lowest desatur ation to 82% during procedure. Please see event note for complications occurring post-intubation. CXR found ETT to be slightly high, so advanced 1cm and re-CXR showed adequate positioning. Kae Haq MD Pulmonary & Critical Care
[2022-11-10 19:08] LABS: Fibrinogen (Stat) (Littleton) 315 mg/dL (208-434)
[2022-11-10 19:13] LABS: Anion Gap 7.1 mmol/L (3-11); BUN 9 mg/dL (7-18); CO2 23.9 mmol/L (21.0-32.0); CREATININE 1.1 mg/dL (0.70-1.30); Calcium 8.2 mg/dL (8.5-10.1); Chloride 90 mmol/L (98-107); Estimated GFR 71.77 (mL/min/1.73m2); Glucose 159 mg/dL (74-106); Potassium 4.3 mmol/L (3.5-5.1)
[2022-11-10 19:20] LABS: Sodium 121 mmol/L (136-145)
[2022-11-10 19:23] LABS: Troponin I 2518 ng/L (<or=60)
[2022-11-10] MEDS: Norepinephrine in D5W 8 MG/250 ML BAG 56.25 MG IV (19:36)
== END 2022-11-10 19:55 | disposition short-term general hospital (02) | DRG 871 ==
LOC: ER 13:58 → ICU 14:35
PROVIDERS: Admitting Provider Internal Medicine; Emergency Provider Student in an Organized Health Care Education/Training Program; PCP Family Medicine; Visit Provider Internal Medicine
DX: A41.9 Sepsis, unspecified organism; G92.8 Other toxic encephalopathy; R65.21 Severe sepsis with septic shock; J18.9 Pneumonia, unspecified organism; J96.21 Acute and chronic respiratory failure with hypoxia; J96.22 Acute and chronic respiratory failure with hypercapnia; E87.1 Hypo-osmolality and hyponatremia; E87.29 Other acidosis; N17.9 Acute kidney failure, unspecified; F10.239 Alcohol dependence with withdrawal, unspecified; I97.418 Intraoperative hemorrhage and hematoma of a circulatory system organ or structure complicating other circulatory system procedure; F17.210 Nicotine dependence, cigarettes, uncomplicated; I48.91 Unspecified atrial fibrillation; E87.5 Hyperkalemia; E16.2 Hypoglycemia, unspecified; R74.8 Abnormal levels of other serum enzymes; D56.3 Thalassemia minor; I73.9 Peripheral vascular disease, unspecified; R74.01 Elevation of levels of liver transaminase levels; D64.9 Anemia, unspecified
CPT/HCPCS: 94002; 31500; 36620; 36415; 36416; 36556; 71045; 71250; 80048; 80053; 82805; 82962; 84145; 85384; 87040; 87081; 87635; 93005; 96361; 96365; 96375; 96376; 99291; 70450; 74176; 81003; 81015; 83605; 83880; 84439; 84443; 84484; 85025; 85379; 85610; 85730; 86140; 93010; 94640; 94660; 94667; 94760; 99292; J0171; J1720; J2930; J7060; J7620